=== PATIENT | female | born 1950 | race Caucasian/White ===

== ENCOUNTER → 2017-04-04 | Outpatient (CLI) | payer OTHER ==
[~2017-04-04] MED LIST: ASPIRIN FOR CHI81 MG PO; ASPIRIN325 M2 PO; ATORVASTATIN CA80 M1 PO; CARVEDILOL3.125 MG PO; DIFLUCAN200 MG PO; EFFIENT10 M1 PO; LIDEX 0.05% CRE15 GM T; LISINOPRIL5 MG PO; Nizoral 2%15 GM PO; PLAVIX75 MG PO
[2017-04-04 15:15] LABS: FREE T4 0.49 ng/dl (0.76-1.46)
== END | disposition home or self-care (01) ==
LOC: RESCLI 03:40 → LAB 03:40 → RESCLI 10:05
PROVIDERS: Student in an Organized Health Care Education/Training Program
DX: E04.9 Nontoxic goiter, unspecified (principal); E66.01 Morbid (severe) obesity due to excess calories; R79.89 Other specified abnormal findings of blood chemistry

== ENCOUNTER → 2017-04-24 | Outpatient (CLI) | payer OTHER | END | disposition home or self-care (01) | LOC: RESCLI 02:05 | DX: I10 Essential (primary) hypertension (principal); E03.9 Hypothyroidism, unspecified; E78.5 Hyperlipidemia, unspecified ==

== ENCOUNTER → 2017-04-28 | Day surgery (SDC) | payer OTHER ==
[~2017-04-28] VITALS: Ht 165.1 cm; Wt 105.7 kg
--- NOTE | ~2017-04-28 | PROC NOTE ---
[place], [place] PROCEDURE NOTE NAME: ALBER BERNAL UNIT #: [id number] ROOM: DOCTOR: MASON DELUCA MD BIRTHDATE: [birth year] DOS: 04/28/2017 PREOPERATIVE DIAGNOSIS: Screening examination, history of constipation. POSTOPERATIVE DIAGNOSIS: Colon polyps times 2. PROCEDURE: Colonoscopy with polypectomy. ENDOSCOPIST: Mason Deluca MD PLANT WRAPPER: [id number]. ANESTHESIA: MAC. INDICATIONS: This is a 66-year-old lady with a history of constipation and with no prior history of colonoscopy who comes in today for the above-mentioned procedure. The procedure and its complications explained to the patient in detail preoperatively. Complications that were discussed included but were not limited to bleeding, missed lesions, colon perforation, and prolonged pain. She agreed to proceed. DESCRIPTION OF PROCEDURE: After identifying the patient, the patient was brought to the endoscopy suite and placed in the left lateral position. After IV sedation was administered, a timeout procedure was called and a digital rectal exam was performed, which was within normal limits. An adult colonoscope was now introduced into the anal canal and advanced sequentially into the rectum, sigmoid colon, descending colon, transverse colon and ascending colon up to the cecum. The prep was found to be suboptimal in certain areas and on multiple occasions saline was irrigated in order to clear the colon for better visualization. Upon reaching the cecum, the scope was withdrawn at approximately 75 cm from the anal verge a colon polyp, which was sessile that was encountered. This was removed with the help of piecemeal polypectomy and sent for histopathological diagnosis. After hemostasis was confirmed, the scope was withdrawn and at approximately 20 cm, the larger polyp was visualized, which was removed with the help of a snare and sent for histopathological diagnosis. Again, hemostasis was confirmed and the scope was then withdrawn and the patient was brought to the recovery room in a stable fashion. Based on these findings, the patient is recommended to have another colonoscopy between 1-3 years. These findings will be discussed with the patient in the postoperative recovery room. Dr. Mason Deluca, the attending endoscopist, was present throughout the operating case. [place], [place] PROCEDURE NOTE NAME: ALBER BERNAL UNIT #: [id number] ROOM: DOCTOR: MASON DELUCA MDTE: 52 Mason Deluca MD CM:GOLDEN:PROCEDURE NOTE [id number] MASON DELUCA MD
[2017-04-28 07:50] VITALS: BP 148/78
[2017-04-28 08:56] VITALS: BP 90/39
[2017-04-28 09:11] VITALS: BP 100/44
[2017-04-28 09:26] VITALS: BP 110/58
== END | disposition home or self-care (01) ==
LOC: SDC 04-27 11:00
DX: D12.5 Benign neoplasm of sigmoid colon (principal); D12.8 Benign neoplasm of rectum; E03.9 Hypothyroidism, unspecified; E78.00 Pure hypercholesterolemia, unspecified; I25.2 Old myocardial infarction; Z95.5 Presence of coronary angioplasty implant and graft; F17.210 Nicotine dependence, cigarettes, uncomplicated

== ENCOUNTER → 2017-07-03 | Outpatient (CLI) | payer OTHER | END | disposition home or self-care (01) | LOC: RESCLI 11:53 | DX: E03.9 Hypothyroidism, unspecified (principal); I10 Essential (primary) hypertension; E78.5 Hyperlipidemia, unspecified; K21.9 Gastro-esophageal reflux disease without esophagitis; I25.10 Atherosclerotic heart disease of native coronary artery without angina pectoris; E66.01 Morbid (severe) obesity due to excess calories; Z88.0 Allergy status to penicillin ==

== ENCOUNTER → 2017-10-03 | Outpatient (CLI) | payer OTHER ==
[2017-10-03 15:00] LABS: BASO % 0.5 % (0.0-1.0); EOS % 0.6 % (1.0-4.0); HEMATOCRIT 37.1 % (37.0-47.0); HEMOGLOBIN 12.3 g/dl (12.0-16.0); LYMPH # 1.5 10*3/uL (1.3-4.4); LYMPH % 23.2 % (27.0-41.0); MEAN CELL VOLUME 97.1 fl (81.0-99.0); MEAN CORPUSCULAR HGB 32.2 pg (27.0-31.0); MEAN CORPUSCULAR HGB CONC 33.2 g/dl (33.0-37.0); MONO # 0.5 10*3/uL (0.1-1.0); MONO % 7.2 % (3.0-9.0); NEUT # 4.4 10*3/uL (2.3-7.9); PLATELET COUNT AUTOMATED 384 10*3/uL (130-400); RED BLOOD COUNT 3.82 10*6/uL (4.10-5.10); RED CELL DISTRI WIDTH 14.6 % (0-14.5); WHITE BLOOD COUNT 6.4 10*3/uL (4.8-10.8)
[2017-10-03 15:28] LABS: CHLORIDE 100 mmol/L (98-107); POTASSIUM 3.8 mmol/L (3.5-5.1); SODIUM 136 mmol/L (136-145)
[2017-10-03 15:48] LABS: ALBUMIN 3.2 gm/dl (3.1-4.5); ALKALINE PHOSPHATASE 87 U/L (45-117); BUN 11 mg/dl (7-24); CREATININE 0.96 mg/dL (0.55-1.02); SGOT/AST 18 IU/L (3-35); SGPT/ALT 20 U/L (12-78); TOTAL PROTEIN 8.4 gm/dL (6.4-8.2)
[2017-10-03 15:54] LABS: VITAMIN D, 25-HYDROXY 6.8 ng/mL (30-100)
[2017-10-03 16:02] LABS: FREE T4 1.19 ng/dl (0.76-1.46)
== END | disposition home or self-care (01) ==
LOC: LAB 02:42 → RESCLI 02:42
PROVIDERS: Internal Medicine
DX: Z00.01 Encounter for general adult medical examination with abnormal findings (principal); E66.01 Morbid (severe) obesity due to excess calories; E03.9 Hypothyroidism, unspecified

== ENCOUNTER → 2018-08-22 | Outpatient (CLI) | payer OTHER ==
[~2018-08-22] MED LIST changes: +LEVOFLOXACIN500 MG PO
== END | disposition home or self-care (01) ==
LOC: RESCLI 13:26
DX: E03.9 Hypothyroidism, unspecified (principal); I10 Essential (primary) hypertension; K21.9 Gastro-esophageal reflux disease without esophagitis; E78.5 Hyperlipidemia, unspecified; I25.10 Atherosclerotic heart disease of native coronary artery without angina pectoris; B37.89 Other sites of candidiasis; R51 Headache; B35.1 Tinea unguium; L40.9 Psoriasis, unspecified; F17.200 Nicotine dependence, unspecified, uncomplicated; E66.01 Morbid (severe) obesity due to excess calories; Z79.82 Long term (current) use of aspirin; Z79.899 Other long term (current) drug therapy; Z88.0 Allergy status to penicillin

== ENCOUNTER 2021-12-14 23:08 | Emergency (ER) | payer OTHER ==
[~2021-12-14] VITALS: Ht 165.1 cm; Wt 88.5 kg
[~2021-12-14 23:08] MED LIST changes: +CLOPIDOGREL75 MG PO; +LEVOTHYROXINE100 MC1 PO; +NYSTOP60 GM T
[2021-12-15 00:48] LABS: BASO % 0.3 % (0.0-1.0); EOS % 0.3 % (1.0-4.0); HEMATOCRIT 38.8 % (37.0-47.0); LYMPH # 1.2 10*3/uL (1.3-4.4); LYMPH % 18.7 % (27.0-41.0); MEAN CORPUSCULAR HGB 32.7 pg (27.0-31.0); MEAN PLATELET VOLUME 10.2 fl (9.6-12.3); MONO # 0.5 10*3/uL (0.1-1.0); MONO % 7.6 % (3.0-9.0); NEUT # 4.8 10*3/uL (2.3-7.9); NEUT % 72.8 % (47.0-73.0); PLATELET COUNT AUTOMATED 284 10*3/uL (130-400); RED BLOOD COUNT 4.04 10*6/uL (4.10-5.10); RED CELL DISTRI WIDTH 16.8 % (0-14.5); WHITE BLOOD COUNT 6.6 10*3/uL (4.8-10.8)
[2021-12-15 01:25] LABS: CREATININE 1.24 mg/dL (0.55-1.02); POTASSIUM 3.2 mmol/L (3.5-5.1)
[2021-12-15 06:21] LABS: BILIRUBIN 1+ (Negative); BLOOD Negative (Negative); CLARITY Cloudy (Clear); COLOR Dark Yellow (Yellow); GLUCOSE Negative (Negative); KETONE Trace (Negative); LEUKO ESTERASE 2+ (Negative); NITRITE Positive (Negative); SPECIFIC GRAVITY >= 1.030 (1.001-1.030)
[2021-12-15 06:32] LABS: WBC 16-20 wbc/hpf (0-5)
[2021-12-15 06:33] LABS: BACTERIA 2+; CALCIUM OXALATE CRYSTALS 1+
[2021-12-15] MEDS ORDERED: CITROMA296 ML PO (07:49)
[2021-12-15] MEDS ORDERED: CEFDINIR300 MG PO (07:49)
[2021-12-15] MEDS ORDERED: ZOFRAN4 MG PO (07:49)
== END 2021-12-15 08:20 | disposition home or self-care (01) ==
LOC: ED 23:08
PROVIDERS: Emergency Medicine
DX: K59.00 Constipation, unspecified (principal); N39.0 Urinary tract infection, site not specified; F17.200 Nicotine dependence, unspecified, uncomplicated; Z88.0 Allergy status to penicillin; Z79.899 Other long term (current) drug therapy

== ENCOUNTER → 2022-03-06 | Outpatient (CLI) | payer OTHER ==
[~2022-03-06] MED LIST changes: +CEFDINIR300 MG PO; +CITROMA296 ML PO; +IMDUR SA30 MG PO; +VITAMIN D350 MC2 PO; +ZOFRAN4 MG PO
[2022-03-06 18:48] LABS: CREATININE 1.8 mg/dL (0.55-1.02); POTASSIUM 4.1 mmol/L (3.5-5.1)
== END | disposition home or self-care (01) ==
LOC: LAB 18:03
PROVIDERS: ATTEND Internal Medicine
DX: I10 Essential (primary) hypertension (principal)